=== PATIENT | female | born 1995 | race Two or more races ===

== ENCOUNTER 2017-07-05 20:06 | Emergency (ER) | payer BC ==
[~2017-07-05] VITALS: Ht 162.6 cm; Wt 67.1 kg
[2017-07-05] MEDS ORDERED: ALBUTEROL SULF 2.5 MG/0.5ML(0.5%) NEB SOLN NEB ONE (21:00)
[2017-07-05] MEDS ORDERED: IPRATROPIUM BROM 0.5 MG/2.5ML INH SOL NEB ONE (21:00)
[2017-07-05 21:20] VITALS: BP 126/78
== END 2017-07-05 22:01 | disposition home or self-care (01) ==
LOC: ER 20:17
DX: O26.892 Other specified pregnancy related conditions, second trimester (principal); R06.02 Shortness of breath; J45.909 Unspecified asthma, uncomplicated; O23.42 Unspecified infection of urinary tract in pregnancy, second trimester; Z3A.22 22 weeks gestation of pregnancy
CPT/HCPCS: 81002; 94640

== ENCOUNTER 2017-07-30 11:30 | Observation (INO) | payer BC | END 2017-07-30 12:50 | disposition home or self-care (01) | DRG 781 | LOC: LDRP 11:30 | PROVIDERS: ADMIT Specialist; ATTEND Specialist | DX: O26.852 Spotting complicating pregnancy, second trimester (principal); O99.512 Diseases of the respiratory system complicating pregnancy, second trimester; J45.909 Unspecified asthma, uncomplicated; Z3A.26 26 weeks gestation of pregnancy | CPT/HCPCS: 59025; 76815; 81002; G0378 ==

== ENCOUNTER 2017-07-30 12:58 | Emergency (ER) | payer BC ==
[~2017-07-30] VITALS: Ht 162.6 cm; Wt 68.0 kg
[2017-07-30 13:05] VITALS: BP 105/68
== END 2017-07-30 13:30 | disposition home or self-care (01) ==
LOC: ER 12:58
DX: O26.892 Other specified pregnancy related conditions, second trimester (principal); J02.9 Acute pharyngitis, unspecified; O99.512 Diseases of the respiratory system complicating pregnancy, second trimester; J45.909 Unspecified asthma, uncomplicated; Z3A.26 26 weeks gestation of pregnancy; Z83.3 Family history of diabetes mellitus

== ENCOUNTER 2021-12-09 06:05 | Inpatient (IN) | payer MEDICAID ==
[~2021-12-09] VITALS: Ht 162.6 cm; Wt 53.5 kg
[2021-12-09] MEDS ORDERED: IPRATROPIUM BROM 0.5 MG/2.5ML INH SOL ONE (06:15)
[2021-12-09] MEDS ORDERED: ALBUTEROL SULF 2.5 MG/0.5ML(0.5%) NEB SOLN NEB ONE ×5 (06:15→14:30)
[2021-12-09] MEDS ORDERED: DexAMETHasone SOD PHOS 10MG/1ML VIAL INJ IV ONE (06:15)
[2021-12-09] MEDS ORDERED: ALBUTEROL SULF 2.5 MG/0.5ML(0.5%) NEB SOLN ONE (06:15)
[2021-12-09] MEDS ORDERED: MAGNESIUM SULFATE 1GM/100ML 200 ML IV ONE (06:22)
[2021-12-09] MEDS: MAGNESIUM SULFATE 1GM/100ML 100 ML IV SCH ×2 (06:27→07:02)
[2021-12-09] MEDS ORDERED: IPRATROPIUM BROM 0.5 MG/2.5ML INH SOL NEB ONE ×3 (06:30→14:30)
[2021-12-09] MEDS ORDERED: LACTATED RINGER'S 1,000 ML IV ONE (06:45)
[2021-12-09] MEDS ORDERED: diphenhdrAMINE HCL 50 MG/1 ML VL IV ONE (07:45)
[2021-12-09 07:52] LABS: Basophils # (auto) 0.1 10 ^3/uL (0-0.2); Basophils % (auto) 2.2 % (0.0-2.0); Eosinophils # (auto) 0.6 10 ^3/uL (0-0.8); Eosinophils % (auto) 9.7 % (0.0-7.0); Hematocrit 31.3 % (36.0-46.0); Hemoglobin 10.6 g/dL (12.2-16.2); Lymphocytes # (auto) 0.7 10 ^3/uL (0.4-5.4); Lymphocytes % (auto) 10.4 % (10.0-50.0); Mean Corpuscular Hemoglobin 29.1 pg (28.0-32.0); Mean Corpuscular Volume 85.4 fL (80.0-100.0); Monocytes # (auto) 0.2 10 ^3/uL (0-1.3); Monocytes % (auto) 3.2 % (0.0-12.0); Neutrophils # (auto) 4.8 10 ^3/uL (1.6-8.6); Neutrophils % (auto) 74.5 % (37.0-80.0); Red Blood Cells 3.66 10^6/uL (4.0-5.20); Red Cell Distribution Width 16.6 % (11.8-14.3); White Blood Cell 6.4 10^3/uL (4.4-10.8)
[2021-12-09 09:15] LABS: Alanine Aminotransferase 23 U/L (13-56); Albumin 3.5 g/dL (3.4-5.0); Anion Gap 6 (5-15); Blood Urea Nitrogen 13 mg/dL (7-18); Carbon Dioxide 23 mmol/L (21-32); Chloride 114 mmol/L (98-107); Glucose 127 mg/dL (74-106); Potassium 3.4 mmol/L (3.5-5.1); Sodium 143 mmol/L (136-145)
[2021-12-09 09:19] LABS: Alkaline Phosphatase 48 U/L (45-117); Aspartate Aminotransferase 13 U/L (15-37); BUN/Creatinine Ratio 14.9; Bilirubin, Total 0.5 mg/dL (0.2-1.0); GFR African American 103 mL/min; GFR Non-African American 85 mL/min; Total Protein 6.8 g/dL (6.4-8.2)
[2021-12-09] MEDS ORDERED: MORPHINE SULFATE INJECTION 2 MG/ML SYRG IV PRN ×2 (13:30→14:30)
[2021-12-09] MEDS ORDERED: NITROGLYCERIN 0.4 MG SL TAB SL PRN (13:30)
[2021-12-09 14:15] VITALS: BP 124/76
[2021-12-09] MEDS ORDERED: FOLIC ACID 1 MG TAB PO ONE (14:30)
[2021-12-09] MEDS ORDERED: ACETAMINOPHEN 325 MG TAB PO PRN (14:30)
[2021-12-09] MEDS ORDERED: hydrALAZINE HCL 20 MG/ML VL IV PRN (14:30)
[2021-12-09] MEDS ORDERED: PROMETHAZINE-DM 5 ML ORAL SYRUP PO PRN (14:30)
[2021-12-09] MEDS ORDERED: PANTOPRAZOLE 40 MG/10 ML VIAL INJ IV ONE (14:30)
[2021-12-09] MEDS ORDERED: ONDANSETRON HCL 4 MG/2 ML VIAL IV PRN (14:30)
[2021-12-09] MEDS ORDERED: BUDESONIDE (INHALATION) 0.5 MG/2 ML NEB NEB ONE (14:30)
[2021-12-09] MEDS ORDERED: HYDROcodone-ACET 5/325MG TAB PO ONE (14:30)
[2021-12-09] MEDS ORDERED: AZITHROMYCIN 500MG/ 250ML 250 ML IV ONE (14:30)
[2021-12-09] MEDS ORDERED: HYDROcodone-ACET 5/325MG TAB PO PRN (14:30)
[2021-12-09] MEDS ORDERED: LORazepam 0.5 MG TAB PO PRN (14:30)
[2021-12-09] MEDS ORDERED: LACTULOSE 20Gm/30ML SOLN PO PRN (14:30)
[2021-12-09] MEDS ORDERED: FERROUS SULFATE 325mg EC TAB PO ONE (14:30)
[2021-12-09] MEDS ORDERED: MONTELUKAST SODIUM 10 MG TAB PO ONE (14:30)
[2021-12-09] MEDS ORDERED: DOCUSATE SOD 100 MG CAP PO PRN (14:30)
[2021-12-09] MEDS ORDERED: IOHEXOL 350 MG/ML 100ML IJ ONE (14:39)
[2021-12-09] MEDS ORDERED: POTASSIUM CHL 20 Meq TABLET PO ONE (14:45)
[2021-12-09] MEDS ORDERED: METOPROLOL TARTRATE 1MG/1ML-5ML VIAL IV PRN (14:45)
[2021-12-09] MEDS: SODIUM CHLORIDE 0.9% 1,000 ML IV SCH (16:24)
[2021-12-09] MEDS: FERROUS SULFATE 325mg EC TAB PO SCH (16:28)
[2021-12-09 17:00] VITALS: BP 124/76
[2021-12-09 17:07] LABS: INR 1.05 (0.9-1.15); Magnesium 2.4 mg/dL (1.6-2.6); Partial Thromboplastin Time 26.8 sec (23.6-33.0); Phosphorus 1.8 mg/dL (2.5-4.90)
[2021-12-09] MEDS: IPRATROPIUM BROM 0.5 MG/2.5ML INH SOL NEB SCH ×2 (18:24→22:13)
[2021-12-09 20:01] VITALS: BP 124/76
[2021-12-09] MEDS: methylPREDNISolone SOD SUCC 40 MG/ML VL IV SCH (21:18)
[2021-12-09 22:00] VITALS: BP 94/64
[2021-12-09] MEDS: BUDESONIDE (INHALATION) 0.5 MG/2 ML NEB NEB SCH (22:15)
[2021-12-09] MEDS: ACETYLCYSTEINE 10 %(100MG/ML) SOL 4ML NEB SCH (22:15)
[2021-12-09] MEDS: ALBUTEROL SULF 2.5 MG/0.5ML(0.5%) NEB SOLN NEB SCH (22:17)
[2021-12-10] MEDS: ALBUTEROL SULF 2.5 MG/0.5ML(0.5%) NEB SOLN NEB SCH ×5 (02:10→18:00)
[2021-12-10] MEDS: IPRATROPIUM BROM 0.5 MG/2.5ML INH SOL NEB SCH ×4 (02:10→18:00)
[2021-12-10 05:00] VITALS: BP 111/67
[2021-12-10 06:16] LABS: Basophils # (auto) 0 10 ^3/uL (0-0.2); Basophils % (auto) 0.1 % (0.0-2.0); Eosinophils # (auto) 0 10 ^3/uL (0-0.8); Hematocrit 34.2 % (36.0-46.0); Hemoglobin 11.7 g/dL (12.2-16.2); Lymphocytes # (auto) 0.5 10 ^3/uL (0.4-5.4); Lymphocytes % (auto) 5.9 % (10.0-50.0); Mean Corpuscular Hemoglobin 29.2 pg (28.0-32.0); Mean Corpuscular Hgb Conc. 34.2 g/dL (32.0-36.0); Mean Corpuscular Volume 85.4 fL (80.0-100.0); Monocytes # (auto) 0.2 10 ^3/uL (0-1.3); Monocytes % (auto) 2.8 % (0.0-12.0); Neutrophils # (auto) 7.5 10 ^3/uL (1.6-8.6); Neutrophils % (auto) 91.2 % (37.0-80.0); Nucleated Red Blood Cells % 0.1 %; Red Blood Cells 4.01 10^6/uL (4.0-5.20); Red Cell Distribution Width 16.9 % (11.8-14.3); White Blood Cell 8.3 10^3/uL (4.4-10.8)
[2021-12-10 06:30] LABS: Chloride 111 mmol/L (98-107); Potassium 5.5 mmol/L (3.5-5.1); Sodium 137 mmol/L (136-145)
[2021-12-10 06:31] LABS: INR 1.03 (0.9-1.15)
[2021-12-10 06:47] LABS: Alanine Aminotransferase 26 U/L (13-56); Alkaline Phosphatase 51 U/L (45-117); Anion Gap 4 (5-15); Aspartate Aminotransferase 18 U/L (15-37); BUN/Creatinine Ratio 14.6; Bilirubin, Total 0.5 mg/dL (0.2-1.0); Blood Urea Nitrogen 12 mg/dL (7-18); CRP High Sensitivity 1.37 mg/dL (< 0.3); Calcium 9.4 mg/dL (8.5-10.1); Carbon Dioxide 22 mmol/L (21-32); Cholesterol 77 mg/dL (< 200); Creatine Kinase IFCC 174 U/L (26-192); GFR African American 110 mL/min; GFR Non-African American 91 mL/min; Glucose 149 mg/dL (74-106); HDL Cholesterol 67 mg/dL (40-59); LDL Cholesterol 7 mg/dL (< 100); Lipase 96 U/L (73-393); Magnesium 2.5 mg/dL (1.6-2.6); Phosphorus 3.6 mg/dL (2.5-4.90); Total Protein 8.1 g/dL (6.4-8.2); Triglycerides 9 mg/dL (< 150); Uric Acid 4.2 mg/dL (2.6-6.0)
[2021-12-10] MEDS: BUDESONIDE (INHALATION) 0.5 MG/2 ML NEB NEB SCH ×2 (06:55→18:35)
[2021-12-10] MEDS: ACETYLCYSTEINE 10 %(100MG/ML) SOL 4ML NEB SCH ×3 (06:55→18:35)
[2021-12-10] MEDS: methylPREDNISolone SOD SUCC 40 MG/ML VL IV SCH ×2 (07:20→22:05)
[2021-12-10] MEDS: SODIUM CHLORIDE 0.9% 1,000 ML IV SCH (07:20)
[2021-12-10] MEDS: FERROUS SULFATE 325mg EC TAB PO SCH (08:35)
[2021-12-10 09:00] VITALS: BP 130/74
[2021-12-10] MEDS ORDERED: FOLIC ACID 1 MG TAB PO SCH (10:00)
[2021-12-10] MEDS ORDERED: AZITHROMYCIN 500MG/ 250ML 250 ML IV SCH (10:00)
[2021-12-10] MEDS ORDERED: CHOLECALCIFEROL (VITD3) 2,000 UNIT CAP/TAB PO SCH (10:00)
[2021-12-10] MEDS ORDERED: PANTOPRAZOLE 40 MG/10 ML VIAL INJ IV SCH (10:00)
[2021-12-10] MEDS: ENOXAPARIN SOD 40 MG/0.4 ML SYRINGE SC SCH (10:06)
[2021-12-10 12:46] VITALS: BP 119/75
[2021-12-10] MEDS ORDERED: methylPREDNISolone SOD SUCC 40 MG/ML VL IV ONE (13:00)
[2021-12-10] MEDS ORDERED: IPRATROPIUM BROM 0.5 MG/2.5ML INH SOL NEB PRN (14:00)
[2021-12-10 15:06] LABS: Urine Bacteria FEW /hpf (None Seen); Urine Blood 2+ /uL (Negative); Urine Specific Gravity 1.009 (1.001-1.035); Urine WBC 33 /hpf (0 - 5)
[2021-12-10 15:17] LABS: Alcohol, Urine < 3.0 mg/dL (0-10); Amphetamine Screen, Urine NEGATIVE (NEGATIVE); Barbiturate Scree,Urine NEGATIVE (NEGATIVE); Benzodiazephine Screen, Urine NEGATIVE (NEGATIVE); Cannabinoid Screen, Urine NEGATIVE (NEGATIVE); Cocaine Screen, Urine NEGATIVE (NEGATIVE); Opiate Scree,Urine NEGATIVE (NEGATIVE); Phencyclidine Screen, Urine NEGATIVE (NEGATIVE); Protein, Urine 10.4 mg/dL (0.0-11.9)
[2021-12-10 17:00] VITALS: BP 119/75
[2021-12-10 22:00] VITALS: BP 132/85
[2021-12-10] MEDS ORDERED: MONTELUKAST SODIUM 10 MG TAB PO SCH (22:00)
[2021-12-11] MEDS: ALBUTEROL SULF 2.5 MG/0.5ML(0.5%) NEB SOLN NEB SCH (00:15)
[2021-12-11] MEDS: IPRATROPIUM BROM 0.5 MG/2.5ML INH SOL NEB SCH ×2 (00:15→08:09)
[2021-12-11 05:00] VITALS: BP 103/58
[2021-12-11 06:18] LABS: BUN/Creatinine Ratio 22.5; Calcium 9.4 mg/dL (8.5-10.1); Potassium 4.6 mmol/L (3.5-5.1)
[2021-12-11 08:00] VITALS: BP 132/81
[2021-12-11] MEDS: ACETYLCYSTEINE 10 %(100MG/ML) SOL 4ML NEB SCH (08:09)
[2021-12-11] MEDS: BUDESONIDE (INHALATION) 0.5 MG/2 ML NEB NEB SCH (08:12)
[2021-12-11] MEDS ORDERED: AZITHROMYCIN 250 MG TAB PO SCH (10:00)
[2021-12-11] MEDS: ENOXAPARIN SOD 40 MG/0.4 ML SYRINGE SC SCH (10:00)
[2021-12-11] MEDS ORDERED: FLUT1INH6 IN ×2 (10:02→10:47)
[2021-12-11] MEDS ORDERED: ALBU108A5 IN ×2 (10:02→10:47)
[2021-12-11] MEDS: methylPREDNISolone SOD SUCC 40 MG/ML VL IV SCH (10:15)
[2021-12-11] MEDS ORDERED: PRED20TA2 PO ×2 (10:37→10:47)
[2021-12-11] MEDS ORDERED: ALBU1.257 IN (10:47)
[2021-12-11 12:22] VITALS: BP 120/82
== END 2021-12-11 14:45 | disposition left against medical advice (07) | DRG 133 ==
LOC: ER 06:05 → OVERFLOW 13:21 → EAST 14:28
PROVIDERS: ADMIT Hospitalist; ATTEND Internal Medicine
DX: J96.01 Acute respiratory failure with hypoxia (principal); D72.10 Eosinophilia, unspecified; J45.901 Unspecified asthma with (acute) exacerbation; E87.5 Hyperkalemia; F12.90 Cannabis use, unspecified, uncomplicated; J01.90 Acute sinusitis, unspecified; Z53.29 Procedure and treatment not carried out because of patient's decision for other reasons; Z91.14 Patient's other noncompliance with medication regimen; Z20.822 Contact with and (suspected) exposure to COVID-19
CPT/HCPCS: 36415; 36600; 71045; 71275; 80048; 80053; 80061; 80307; 81001; 82550; 82728; 82785; 82805; 83036; 83615; 83690; 83735; 83880; 84100; 84132; 84156; 84443; 84484; 84550; 84702; 85025; 85379; 85610; 85652; 85730; 86141; 87040; 87086; 87088; 87186; 93005; 93970; 94640; 94644; 96365; 96366; 96375; 99291; C9113; G0378; J1100

== ENCOUNTER 2022-11-12 20:00 | Inpatient (IN) | payer MEDICAID, OTHER ==
[~2022-11-12] VITALS: Ht 162.6 cm; Wt 80.8 kg
[~2022-11-12 20:00] MED LIST: ALBU1.257 IN; ALBU108A5 IN; CYCL-837 PO; FLUT1INH6 IN; IBUP800T26 PO; PRED20TA2 PO
[2022-11-12] MEDS ORDERED: IPRATROPIUM BROM 0.5 MG/2.5ML INH SOL NEB ONE ×2 (20:30→21:30)
[2022-11-12] MEDS ORDERED: ALBUTEROL SULF 2.5 MG/0.5ML(0.5%) NEB SOLN NEB ONE ×2 (20:30→21:30)
[2022-11-12] MEDS ORDERED: ALBUTEROL MEDNEB 2.5 mg/3ml NEB ONE (20:36)
[2022-11-12] MEDS ORDERED: methylPREDNISolone SOD SUCC 125 MG/2 ML VL IM ONE (21:30)
[2022-11-12] MEDS ORDERED: FLUT100I IN ×2 (21:46)
[2022-11-12] MEDS ORDERED: PRED20TA2 PO ×2 (21:46)
[2022-11-12] MEDS ORDERED: ALBUAER3 IN ×2 (21:46)
[2022-11-12] MEDS: MAGNESIUM SULFATE 1GM/100ML 100 ML IV SCH (23:07)
[2022-11-12 23:09] LABS: Basophils # (auto) 0.1 10 ^3/uL (0-0.2); Basophils % (auto) 0.7 % (0.0-2.0); Eosinophils # (auto) 0.8 10 ^3/uL (0-0.8); Eosinophils % (auto) 10.9 % (0.0-7.0); Hematocrit 36.2 % (36.0-46.0); Hemoglobin 12.7 g/dL (12.2-16.2); Lymphocytes # (auto) 1.5 10 ^3/uL (0.4-5.4); Lymphocytes % (auto) 19.9 % (10.0-50.0); Mean Corpuscular Hemoglobin 31.4 pg (28.0-32.0); Mean Corpuscular Volume 89.7 fL (80.0-100.0); Monocytes # (auto) 0.3 10 ^3/uL (0-1.3); Monocytes % (auto) 3.8 % (0.0-12.0); Neutrophils # (auto) 4.8 10 ^3/uL (1.6-8.6); Neutrophils % (auto) 64.7 % (37.0-80.0); Nucleated Red Blood Cells % 0.1 %; Red Blood Cells 4.04 10^6/uL (4.0-5.20); Red Cell Distribution Width 13.8 % (11.8-14.3); White Blood Cell 7.5 10^3/uL (4.4-10.8)
[2022-11-12 23:25] LABS: Albumin 3.9 g/dL (3.4-5.0); BUN/Creatinine Ratio 18.5; Calcium 8.7 mg/dL (8.5-10.1); Potassium 3.2 mmol/L (3.5-5.1)
[2022-11-12 23:28] LABS: Bilirubin, Total 0.3 mg/dL (0.2-1.0); Total Protein 7.6 g/dL (6.4-8.2)
[2022-11-12] MEDS ORDERED: methylPREDNISolone SOD SUCC 125 MG/2 ML VL IV ONE (23:30)
[2022-11-13] MEDS: MAGNESIUM SULFATE 1GM/100ML 100 ML IV SCH (00:15)
[2022-11-13] MEDS ORDERED: POTASSIUM CHL 20 Meq TABLET PO ONE (00:30)
[2022-11-13] MEDS ORDERED: ONDANSETRON HCL 4 MG/2 ML VIAL IV PRN (02:30)
[2022-11-13] MEDS ORDERED: ACETAMINOPHEN 325 MG TAB PO PRN (02:30)
[2022-11-13] MEDS ORDERED: TEMAZEPAM 15 MG CAP PO PRN (02:30)
[2022-11-13 02:35] VITALS: BP 133/68
[2022-11-13] MEDS ORDERED: ALBUTEROL MEDNEB 2.5 mg/3ml NEB ONE ×2 (06:16→10:16)
[2022-11-13] MEDS: ALBUTEROL SULF 2.5 MG/0.5ML(0.5%) NEB SOLN NEB PRN ×2 (06:17→11:36)
[2022-11-13] MEDS: IPRATROPIUM BROM 0.5 MG/2.5ML INH SOL NEB PRN ×3 (06:17→21:00)
[2022-11-13] MEDS: methylPREDNISolone SOD SUCC 125 MG/2 ML VL IV SCH ×2 (11:10→21:12)
[2022-11-13] MEDS ORDERED: ALBUTEROL MEDNEB 2.5 mg/3ml NEB NEB PRN (12:15)
[2022-11-13] MEDS ORDERED: AZITHROMYCIN 500MG/ 250ML 250 ML IV ONE (14:15)
[2022-11-13] MEDS ORDERED: ALBU108A5 IN (14:16)
[2022-11-13] MEDS ORDERED: ALBU0.084 NEB (14:17)
[2022-11-13 16:40] VITALS: BP 123/79
[2022-11-13 22:00] VITALS: BP 134/68
[2022-11-13] MEDS ORDERED: MONTELUKAST SODIUM 10 MG TAB PO SCH (22:00)
[2022-11-14 05:00] VITALS: BP 122/74
[2022-11-14 06:52] LABS: BUN/Creatinine Ratio 19.2; Magnesium 2.4 mg/dL (1.6-2.6); Potassium 4.9 mmol/L (3.5-5.1)
[2022-11-14 08:00] VITALS: BP 104/65
[2022-11-14 09:00] VITALS: BP 104/65
[2022-11-14] MEDS: methylPREDNISolone SOD SUCC 125 MG/2 ML VL IV SCH (09:25)
[2022-11-14] MEDS ORDERED: AZITHROMYCIN 500MG/ 250ML 250 ML IV SCH (10:00)
[2022-11-14] MEDS ORDERED: AZITTAB PO (11:24)
[2022-11-14] MEDS ORDERED: METH4PAK PO (11:24)
[2022-11-14] MEDS ORDERED: MONT10TA23 PO (11:24)
[2022-11-14] MEDS ORDERED: DEXT1SYP9 GT (11:24)
[2022-11-14] MEDS ORDERED: cefTRIAXone 1GM/50ML D5W 50 ML IV ONE (11:30)
[2022-11-14 13:00] VITALS: BP 122/79
[2022-11-14 15:52] VITALS: BP 122/79
[2022-11-14 17:02] VITALS: BP 121/69
== END 2022-11-14 17:26 | disposition home or self-care (01) | DRG 145 ==
LOC: ER 20:03 → OVERFLOW 11-13 02:19 → WEST WING 11-13 13:17
PROVIDERS: ADMIT Nurse Practitioner; ATTEND Internal Medicine Geriatric Medicine
DX: J20.9 Acute bronchitis, unspecified (principal); J96.21 Acute and chronic respiratory failure with hypoxia; J45.902 Unspecified asthma with status asthmaticus; Z20.822 Contact with and (suspected) exposure to COVID-19; E87.6 Hypokalemia; Z83.3 Family history of diabetes mellitus
CPT/HCPCS: 36415; 71045; 80048; 80053; 83735; 85025; 87426; 87804; 94640; 94644; 96365; 96366; 96372; 96375; 96376; G0378; J0696

== ENCOUNTER 2024-08-14 21:21 | Emergency (ER) | payer MEDICAID, OTHER ==
[~2024-08-14] VITALS: Ht 165.1 cm; Wt 93.0 kg
[~2024-08-14 21:21] MED LIST changes: +ALBU0.084 NEB; -ALBU1.257 IN; +AZITTAB PO; -CYCL-837 PO; +DEXT1SYP9 GT; -FLUT1INH6 IN; -IBUP800T26 PO; +METH4PAK PO; +MONT10TA23 PO; -PRED20TA2 PO
--- NOTE | 2024-08-14 21:37 | ED.PDOC ---
SOB-HPI HPI Comments 38-year-old female who came to ER via EMS for shortness of breath. History of asthma. She has been having dry cough and shortness of breath since yesterday, noted to have wheezing and chest tightness. Inhalers taken offered no relief. Upon arrival of paramedics noted to be saturating 93% room air, and was given a lbuterol and Atrovent nebulization while EN route to the emergency room. Patient states she feels better at this time here. Chief Complaint: Shortness of breath Time Seen by MD: 21:37 Reviewed notes: Turn Down Man Notes Information Source: Patient, Emergency Med Personnel Mode of Arrival: EMS Severity: Moderate Timing: Hours Duration: Since onset Context: At Rest, With Light Exertion PE Risk Factors: None History of: Asthma Prehospital treatment: Breathing Tx, Oxygen Associated Signs and Symptoms: Wheeze, Cough, Sore Throat, Chest Pain Quality: Tightness Radiation: No Radiation Location: Chest (R), Chest (L) If cough with SOB: Non-Productive Past Medical History PAST MEDICAL HISTORY: Asthma Surgical History: Denies all surgeries EXPLORATION ENGINEER History: Denies all EXPLORATION ENGINEER Hx Family History Family History: Reviewed,noncontributory to illness Social History Smoker: Non-Smoker Alcohol: Denies ETOH Use Drugs: Denies Drug Use Lives In: Home Constitutional: denies: chills, diaphoresis, fatigue, fever, malaise, sweats, weakness, others EENTM: reports: throat pain; denies: blurred vision, double vision, ear bleeding, ear discharge, ear drainage, ear pain, ear ringing, eye pain, eye redness, hearing loss, mouth pain, mouth swelling, nasal discharge, nose bleeding, nose congestion, nose pain, photophobia, tearing, throat swelling, voice changes, others Respiratory: reports: SOB at rest, shortness of breath, wheezing; denies: cough, hemoptysis, orthopnea, SOB with excertion, stridor, others Cardiovascular: reports: chest pain; denies: dizzy spells, diaphoresis, Dyspnea on exertion, edema, irregular heart beat, left arm pain, lightheadedness, palpitations, PND, syncope, others Gastrointestinal: denies: abdomen distended, abdominal pain, blood streaked bowels, constipated, diarrhea, dysphagia, difficulty swallowing, hematemesis, melena, nausea, poor appetite, poor fluid intake, rectal bleeding, rectal pain, vomiting, others Genitourinary: denies: abnormal vagina bleeding, burning, dyspareunia, dysuria, flank pain, frequency, hematuria, incontinence, pain, , vagina discharge, urgency, others Neurological: denies: dizziness, fainting, headache, left sided numbness, left sided weakness, numbness, paresthesia, pre-existing deficit, right sided numbness, right sided weakness, seizure, speech problems, tingling, tremors, weakness, others Musculoskeletal: denies: back pain, gout, joint pain, joint swelling, muscle pain, muscle stiffness, neck pain, others Integumetry: denies: bruises, change in color, change in hair/nails, dryness, laceration, lesions, lumps, rash, wounds, others Allergic/Immunocompromised: denies: Difficulty Healing, Frequent Infections, Hives, Itching, others Hematologic/Lymphatic: denies: anemia, blood clots, easy bleeding, easy bruising, swollen glands, others Endocrine: denies: excessive hunger, excessive sweating, excessive thirst, excessive urination, flushing, intolerance to cold, intolerance to heat, unexplained weight gain, unexplained weight loss, others Psychiatric: denies: anxiety, bipolar disorder, depression, hopeless, panic disorder, schizophrenia, sleepless, suicidal, others Physical Exam General Appearance: No Apparent Distress, Normal HEENT: Normal ENT Inspection, Pharynx Normal, TMs Normal Neck: Full Range of Motion, Non-Tender, Normal, Normal Inspection Respiratory: Chest Non-Tender, Lungs Clear, No Accessory Muscle Use, No Respiratory Distress, Normal Breath Sounds Cardiovascular: No Edema, No JVD, No Murmur, No Gallop, Normal Peripheral Pulses, Regular Rate/Rhythm Breast Exam: Deferred Gastrointestinal: No Organomegaly, Non Tender, No Pulsatile Mass, Normal Bowel Sounds, Soft Genitalia: Deferred Pelvic: Deferred Rectal: Deferred Extremities: No calf tenderness, Normal capillary refill, Normal inspection, Normal range of motion, Non-tender, No pedal edema Musculoskeletal : Apperance: Normal Neurologic: Alert, manager qa II-XII nml as Tested, No Motor Deficits, Normal Affect, Normal Mood, No Sensory Deficits Cerebellar Function: Normal Reflexes: Normal Skin: Dry, Normal Color, Warm Lymphatic: No Adenopathy Was a procedure done? Was a procedure done?: No Differential Dx Differential Diagnosis: Asthma, COPD, Hyperventilation, Pneumonia, Respiratory Distress X-Ray, Labs, Meds, VS Vital Signs Date Time Temp Pulse Resp B/P (MAP) Pulse Ox O2 Delivery O2 Flow Rate FiO2 08/14/24 23:23 97.4 100 17 122/84 (97) 95 97.4 08/14/24 22:06 99.3 133 18 106/53 (70) 99 99.3 08/14/24 22:06 133 18 99 Room Air 08/14/24 22:03 18 97 Room Air* 0 21 08/14/24 21:29 99.5 146 18 128/66 (86) 99 Lab Test 08/14/24 22:14 Range/Units Influenza Type A Antigen Negative Negative Influenza Type B Antigen Negative Negative Current Medications Medications (Trade) Dose Ordered Sig/Karen Route Start Time Stop Time Status Last Admin Albuterol (Ventolin Medneb) 5 mg ONCE ONCE NEB 08/14/24 21:45 08/14/24 21:46 DC 08/14/24 22:03 Ipratropium [place] (Atrovent Medneb) 0.5 mg ONCE ONCE NEB 08/14/24 21:45 08/14/24 21:46 DC 08/14/24 22:03 Prednisone 40 mg ONCE ONCE PO 08/14/24 21:45 08/14/24 21:46 DC 08/14/24 22:11 EXAMINATION: Chest x-ray 1 view FINDINGS: Central interstitial prominence. No lobar consolidation identified. No definite pleural effusion or pneumothorax. The cardiomediastinal silhouette appears within normal limits given technique. IMPRESSION: Central interstitial prominence is relatively nonspecific but can be seen with edema, reactive airway changes as well as atypical / viral infection. Please correlate clinically. Time of 1ST Reevaluation: 21:34 Reevaluation 1ST: Unchanged Time of 2ND Reevaluation: 23:00 Reevaluation 2ND: Improved Patient Education/Counseling: Diagnosis, Treatment Family Education/Counseling: No Family Present Departure 1 Departure Time of Disposition: 23:00 Impression: Primary Impression: Asthma with acute exacerbation in adult Disposition: 01 HOME / SELF CARE / HOMELESS Condition: Stable e-Prescriptions Azithromycin (Azithromycin) 500 Mg Tab 1 TAB PO DAILY for 5 Days, #5 TAB Prov: CLIFF RTINIDAD MD 12/1/24 Prednisone (Prednisone) 20 Mg Tab 20 MG PO BID for 5 Days, #10 TAB Prov: CLIFF TRINIDAD MD 08/15/24 Albuterol Sulfate (Albuterol Sulfate Hfa) 108 Mcg/Act Aer 108 MCG IN Q4HP PRN for 10 Days, #1 AER Prov: CLIFF TRINIDAD MD 08/15/24 Discharged With: Self Critical Care Note Critical Care Time?: No Stability Stability form required: No Heart Score Heart Score: Heart Score Response (Comments) Value History N/A 0 EKG N/A 0 Age N/A 0 Risk Factors N/A 0 Troponin N/A 0 Total 0 I personally scribed for CLIFF TRINIDAD MD ([email or web address]) on 08/14/24 at 21:37. Electronically submitted by Lane Horn ([email or web address]). I personally scribed for CLIFF TRINIDAD MD ([email or web address]) on 08/14/24 at 22:21. Electronically submitted by Lane Horn ([email or web address]). CLIFF TRINIDAD MD Aug 14, 2024 21:37
[2024-08-14] MEDS: IPRATROPIUM BROM 0.5 MG/2.5ML INH SOL NEB ONE (22:03)
[2024-08-14] MEDS: ALBUTEROL SULF 2.5 MG/0.5ML(0.5%) NEB SOLN NEB ONE (22:03)
--- NOTE | 2024-08-14 22:03 | DVH ---
EXAMINATION: Chest x-ray 1 view CLINICAL HISTORY: SOB COMPARISON: None FINDINGS: Central interstitial prominence. No lobar consolidation identified. No definite pleural effusion or p neumothorax. The cardiomediastinal silhouette appears within normal limits given technique. IMPRESSION: Central interstitial prominence is relatively nonspecific but can be seen with edema, reactive airway changes as well as atypical / viral infection. Please correlate clinically.
[2024-08-14] MEDS: predniSONE 20 MG TAB PO ONE (22:11)
[2024-08-14 22:40] LABS: Rapid Influenza A Negative (Negative); Rapid Influenza B Negative (Negative)
[2024-08-14] MEDS ORDERED: AZIT500T66 PO (22:50)
[2024-08-14] MEDS ORDERED: ALBU108A5 IN (22:50)
[2024-08-14] MEDS ORDERED: PRED20TA2 PO (22:50)
[2024-08-14 23:23] VITALS: BP 122/84; PULSE 100; RESP 17; TEMP 97.4; O2SAT 95
== END 2024-08-14 23:23 | disposition home or self-care (01) ==
LOC: EDBD 21:21 → ER 21:21 → MERGE 21:21 → ER 23:23
DX: J45.901 Unspecified asthma with (acute) exacerbation (principal)
CPT/HCPCS: 71045; 87804; 94640; 99284; J7512

== ENCOUNTER 2024-09-26 15:26 | Emergency (ER) | payer MEDICAID ==
[~2024-09-26] VITALS: Ht 157.5 cm; Wt 75.0 kg
[~2024-09-26 15:26] MED LIST changes: +AZIT500T66 PO; +PRED20TA2 PO
--- NOTE | 2024-09-26 15:33 | ED.PDOC ---
History of Present Illness HPI Comments 28-year-old female who comes in with chief complaint of shortness a breath and cough. The patient states that the symptoms started on Friday night. The symptoms then worsened yesterday so today she called 911 and was transported to our facility. She states that her cough is productive. EN route, the patient received three breathing treatments with some relief. The patient also received 2 g of magnesium IV piggyback. When the paramedics arrived on scene, the patient had an oxygen saturation of 88%. She does have a history of asthma and has been seen for it multiple times but has never been intubated in the past. Upon arrival, the patient was stating that she is having some relief. Time Seen by MD: 15:29 Primary Care Provider: SANYA Reviewed Notes: Nurses Notes, Belt Glass Sander Notes, Medications, Allergies (No allergies to medications) Allergies: Coded Allergies: NO KNOWN ALLERGIES (Unverified , 10/27/12) Home Meds Active Scripts Methylprednisolone (Medrol Dosepak) 4 Mg Madan, 4 MG PO UD, #21 TAB UAD Prov:KAYKAY CORNEJO MD 09/26/24 Azithromycin (Azithromycin) 500 Mg Tab, 1 TAB PO DAILY for 5 Days, #5 TAB Prov:CLIFF TRINIDAD MD 08/15/24 Prednisone (Prednisone) 20 Mg Tab, 20 MG PO BID for 5 Days, #10 TAB Prov:CLIFF TRINIDAD MD 08/15/24 Albuterol Sulfate (Albuterol Sulfate Hfa) 108 Mcg/Act Aer, 108 MCG IN Q4HP PRN for 10 Days, #1 AER Prov:CLIFF TRINIDAD MD 08/15/24 Dextromethorphan-Guaifenesin (Robitussin-Dm) 10 Ml Sr, 10 ML GT Q4HP PRN, #240 SYP Prov:MELL SLOAN MD 11/14/22 Azithromycin (Zithromax Z-Madan) 250 Mg Tab, 250 MG PO Q24H, #6 TAB Prov:MELL SLOAN MD 11/14/22 Montelukast Sodium (Singulair) 10 Mg Tab, 10 MG PO HS for 30 Days, #30 TAB 3 Refills Prov:MELL SLOAN MD 11/14/22 Reported Medications Albuterol Sulfate (Albuterol Sulfate) 0.083 % Neb, 1 VIAL NEB Q4HPRN, #50 VIAL 11/13/22 Albuterol Sulfate (Albuterol Sulfate Hfa) 108 Mcg/Act Aer, 2 PUFF IN Q4HR 11/13/22 Information Source: Patient, Emergency Med Personnel Mode of Arrival: EMS Severity: Moderate Timing: Days Duration: Since onset Prehospital treatment: Beta-Agonist Tx, Water Jet Operator, IVF, Other (Magnesium 2 g IV piggyback) Associated signs and symptoms Shortness a breath with cough but no chest pain Past Medical History PAST MEDICAL HISTORY: Asthma Surgical History: , Hernia Repair SUPERINTENDENT COMMUNICATIONS History: No Pertinent SUPERINTENDENT COMMUNICATIONS History Family History Family History: Family hx of DM Social History Smoker: Non-Smoker, Secondhand Alcohol: Occasionally Drugs: Denies Drug Use Lives In: Home Constitutional: denies: chills, diaphoresis, fatigue, fever, malaise, sweats, weakness, others EENTM: denies: blurred vision, double vision, ear bleeding, ear discharge, ear drainage, ear pain, ear ringing, eye pain, eye redness, hearing loss, mouth pain, mouth swelling, nasal discharge, nose bleeding, nose congestion, nose pain, photophobia, tearing, throat pain, throat swelling, voice changes, others Respiratory: reports: cough, shortness of breath, wheezing; denies: hemoptysis, orthopnea, SOB at rest, SOB with excertion, stridor, others Cardiovascular: denies: chest pain, dizzy spells, diaphoresis, Dyspnea on exertion, edema, irregular heart beat, left arm pain, lightheadedness, palpitations, PND, syncope, others Gastrointestinal: denies: abdomen distended, abdominal pain, blood streaked bowels, constipated, diarrhea, dysphagia, difficulty swallowing, hematemesis, melena, nausea, poor appetite, poor fluid intake, rectal bleeding, rectal pain, vomiting, others Genitourinary: denies: abnormal vagina bleeding, burning, dyspareunia, dysuria, flank pain, frequency, hematuria, incontinence, pain, , vagina discharge, urgency, others Neurological: denies: dizziness, fainting, headache, left sided numbness, left sided weakness, numbness, paresthesia, pre-existing deficit, right sided numbness, right sided weakness, seizure, speech problems, tingling, tremors, weakness, others Musculoskeletal: denies: back pain, gout, joint pain, joint swelling, muscle pain, muscle stiffness, neck pain, others Integumetry: denies: bruises, change in color, change in hair/nails, dryness, laceration, lesions, lumps, rash, wounds, others Allergic/Immunocompromised: denies: Difficulty Healing, Frequent Infections, Hives, Itching, others Hematologic/Lymphatic: denies: anemia, blood clots, easy bleeding, easy bruising, swollen glands, others Endocrine: denies: excessive hunger, excessive sweating, excessive thirst, excessive urination, flushing, intolerance to cold, intolerance to heat, unexplained weight gain, unexplained weight loss, others Psychiatric: denies: anxiety, bipolar disorder, depression, hopeless, panic disorder, schizophrenia, sleepless, suicidal, others Physical Exam General Appearance: Moderate Distress HEENT: Normal ENT Inspection, Pharynx Normal, TMs Normal Neck: Full Range of Motion, Non-Tender, Normal, Normal Inspection Respiratory: Chest Non-Tender, Decreased Breath Sounds, No Accessory Muscle Use, Respiratory Distress, Wheezing Cardiovascular: No Edema, No JVD, No Murmur, No Gallop, Tachycardia Breast Exam: Deferred Gastrointestinal: No Organomegaly, Non Tender, No Pulsatile Mass, Normal Bowel Sounds, Soft Genitalia: Deferred Pelvic: Deferred Rectal: Deferred Extremities: No calf tenderness, Normal capillary refill, Normal inspection, Normal range of motion, Non-tender, No pedal edema Musculoskeletal : Apperance: Normal Neurologic: Alert, male infertility specialist II-XII nml as Tested, No Motor Deficits, Normal Affect, Normal Mood, No Sensory Deficits Cerebellar Function: Normal Reflexes: Normal Skin: Dry, Normal Color, Warm Lymphatic: No Adenopathy Was a procedure done? Was a procedure done?: No Differential Dx Considerations may include: Asthma exacerbation, status asthmaticus, bronchitis X-Ray, Labs, Meds, VS Vital Signs Date Time Temp Pulse Resp B/P (MAP) Pulse Ox O2 Delivery O2 Flow Rate FiO2 09/26/24 16:56 111 22 115/79 (91) 95 09/26/24 15:39 20 100 Room Air 0 09/26/24 15:33 97.9 116 20 138/92 (107) 100 Lab Test 09/26/24 15:39 Range/Units White Blood Count 8.8 4.4-10.8 10^3/uL Red Blood Count 4.18 4.0-5.20 10^6/uL Hemoglobin 13.5 12.2-16.2 g/dL Hematocrit 39.4 36.0-46.0 % Mean Corpuscular Volume 94.5 80.0-100.0 fL Mean Corpuscular Hemoglobin 32.4 H 28.0-32.0 pg Mean Corpuscular Hemoglobin Concent 34.3 32.0-36.0 g/dL Red Cell Distribution Width 13.0 11.8-14.3 % Platelet Count 241 140-450 10^3/uL Mean Platelet Volume 7.2 6.9-10.8 fL Neutrophils (%) (Auto) 37.0-80.0 % Lymphocytes (%) (Auto) 10.0-50.0 % Monocytes (%) (Auto) 0.0-12.0 % Eosinophils (%) (Auto) 0.0-7.0 % Basophils (%) (Auto) 0.0-2.0 % Neutrophils # (Auto) 1.6-8.6 10 ^3/uL Lymphocytes # (Auto) 0.4-5.4 10 ^3/uL Monocytes # (Auto) 0-1.3 10 ^3/uL Differential Total Cells Counted Pending Neutrophils % (Manual) Pending Band Neutrophils % (Manual) Pending Lymphocytes % (Manual) Pending Monocytes % (Manual) Pending Eosinophils % (Manual) Pending Basophils % (Manual) Pending Metamyelocytes % (manual) Pending Myelocytes % (Manual) Pending Promyelocytes % (Manual) Pending Blast Cells % (Manual) Pending Reactive Lymphocytes Pending Platelet Estimate Pending Sodium Level 140 136-145 mmol/L Potassium Level 4.0 3.5-5.1 mmol/L Chloride Level 105 98-107 mmol/L Carbon Dioxide Level 27 20-31 mmol/L Anion Gap 8 5-15 Blood Urea Nitrogen 14 9-23 mg/dL Creatinine 1.31 H 0.550-1.02 mg/dL Glomerular Filtration Rate Calc 58 >90 mL/min BUN/Creatinine Ratio 10.7 10.0-20.0 Serum Glucose 110 H 74-106 mg/dL Calcium Level 9.5 8.7-10.4 mg/dL Current Medications Medications (Trade) Dose Ordered Sig/Karen Route Start Time Stop Time Status Last Admin Methylprednisolone Sodium Succinate (Solu Medrol) 125 mg ONCE ONCE IV 09/26/24 15:30 09/26/24 15:31 DC 09/26/24 16:54 CHEST RADIOGRAPH IMPRESSION: No acute cardiopulmonary disease. The patient was given Solu-Medrol 125 mg IV push The CBC is within normal limits The chemistry panel is within normal limits At this time, the patient will be discharged The patient was placed on a Medrol Dosepak The patient has medications for albuterol hand-held nebulizer at home The patient was discharged Images Reviewed?: Images reviewed and evaluated by me Time of 1ST Reevaluation: 15:33 Reevaluation 1ST: Unchanged Patient Education/Counseling: Diagnosis, Treatment, Prognosis Family Education/Counseling: No Family Present Departure 1 Departure Time of Disposition: 17:13 Impression: Primary Impression: Acute asthma exacerbation Qualified Codes: J45.21 - Mild intermittent asthma with (acute) exacerbation Disposition: 01 HOME / SELF CARE / HOMELESS Condition: Fair e-Prescriptions Methylprednisolone (Medrol Dosepak) 4 Mg Madan 4 MG PO UD, #21 TAB UAD Prov: KAYKAY CORNEJO MD 09/26/24 Discharged With: Self Critical Care Note Critical Care Time?: No Stability Stability form required: No Heart Score Heart Score: Heart Score Response (Comments) Value History N/A 0 EKG N/A 0 Age N/A 0 Risk Factors N/A 0 Troponin N/A 0 Total 0 I personally scribed for KAYKAY CORNEJO MD ([email or web address]) on 09/26/24 at 16:07. Electronically submitted by Debbie Askew ([facility]). KAYKAY CORNEJO MD Sep 26, 2024 15:33
--- NOTE | 2024-09-26 15:58 | DVH ---
CHEST RADIOGRAPH Indication: sob Technique: Single frontal view of the chest was obtained Comparison: XY CHEST XRAY 1 VIEW on DOS: 11/12/22, CHEST PORTABLE on DOS: 12/09/21, CXRP on DOS: 2 FINDINGS: Lines and Tubes: None Lungs: No focal consolidation. Pleura: No effusion. No pneumothorax. Cardiomediastinal contours: Unremarkable Bones: No acute osseous abnormality. IMPRESSION: No acute cardiopulmonary disease.
[2024-09-26 16:04] LABS: Chloride 105 mmol/L (98-107); Sodium 140 mmol/L (136-145)
[2024-09-26 16:05] LABS: Anion Gap 8 (5-15); Carbon Dioxide 27 mmol/L (20-31)
[2024-09-26 16:06] LABS: Calcium 9.5 mg/dL (8.7-10.4)
[2024-09-26 16:08] LABS: Hematocrit 39.4 % (36.0-46.0); Hemoglobin 13.5 g/dL (12.2-16.2); Mean Corpuscular Hemoglobin 32.4 pg (28.0-32.0); Mean Corpuscular Hgb Conc. 34.3 g/dL (32.0-36.0); Mean Corpuscular Volume 94.5 fL (80.0-100.0); Platelet Count (auto) 241 10^3/uL (140-450); Red Blood Cells 4.18 10^6/uL (4.0-5.20); White Blood Cell 8.8 10^3/uL (4.4-10.8)
[2024-09-26 16:11] LABS: BUN/Creatinine Ratio 10.7 (10.0-20.0); Blood Urea Nitrogen 14 mg/dL (9-23); Glucose 110 mg/dL (74-106)
[2024-09-26 16:35] LABS: Band Neutrophils % (manual) 0; Basophils % (manual) 0 (0.0-2.0); Blast Cells 0; Metamyelocytes % 0; Myelocytes % 0; Promyelocytes % 0; Reactive Lymphocytes 0
[2024-09-26] MEDS: methylPREDNISolone SOD SUCC 125 MG/2 ML VL IV ONE (16:54)
[2024-09-26 16:56] VITALS: BP 115/79; PULSE 111; RESP 22; O2SAT 95
[2024-09-26] MEDS ORDERED: METH4PAK PO (17:11)
[2024-09-26 17:49] LABS: Eosinophils % (manual) 17 (0-7); Lymphocytes % (manual) 14 (10.0-50.0); Monocytes % (manual) 4 (0-12); Platelet Estimate Adequate
== END 2024-09-26 17:43 | disposition home or self-care (01) ==
LOC: ER 15:26 → EDBD 15:26 → ER 17:42
DX: J45.21 Mild intermittent asthma with (acute) exacerbation (principal); Z79.52 Long term (current) use of systemic steroids; Z98.890 Other specified postprocedural states
CPT/HCPCS: 36415; 71045; 80048; 85007; 85027; 96374; 99284; J2919